=== PATIENT | female | born 1980 | race Caucasian/White ===

== ENCOUNTER 2017-05-11 00:36 | Emergency (ER) | payer OTHER ==
[2017-05-11 00:43] VITALS: BP 135/83
== END 2017-05-11 02:06 | disposition home or self-care (01) ==
LOC: ED 00:36
DX: L60.0 Ingrowing nail (principal)
CPT/HCPCS: J1885

== ENCOUNTER 2017-07-12 17:37 | Emergency (ER) | payer OTHER ==
[2017-07-12 17:54] VITALS: BP 151/93
== END 2017-07-12 19:22 | disposition home or self-care (01) ==
LOC: ED 17:37
DX: M77.31 Calcaneal spur, right foot (principal)
CPT/HCPCS: J1885

== ENCOUNTER 2017-11-20 07:46 | Emergency (ER) | payer OTHER ==
[~2017-11-20] VITALS: Ht 170.2 cm; Wt 128.8 kg
[2017-11-20 08:03] VITALS: BP 142/85; Ht 170.2 cm; Wt 128.8 kg
== END 2017-11-20 11:18 | disposition home or self-care (01) ==
LOC: ED 07:46
DX: B34.9 Viral infection, unspecified (principal)

== ENCOUNTER 2018-12-14 23:00 | Emergency (ER) | payer OTHER ==
[~2018-12-14] VITALS: Ht 170.2 cm; Wt 126.1 kg
[2018-12-14 23:21] VITALS: Ht 170.2 cm; Wt 126.1 kg
[2018-12-15 00:31] VITALS: BP 132/76
== END 2018-12-15 00:31 | disposition home or self-care (01) ==
LOC: ED 23:00
DX: H66.91 Otitis media, unspecified, right ear (principal); J30.2 Other seasonal allergic rhinitis; Z98.890 Other specified postprocedural states

== ENCOUNTER 2019-02-20 22:32 | Emergency (ER) | payer OTHER ==
[~2019-02-20] VITALS: Ht 170.2 cm; Wt 130.6 kg
[2019-02-20 22:44] VITALS: Ht 170.2 cm; Wt 130.6 kg
[2019-02-21 00:25] VITALS: BP 143/90
== END 2019-02-21 00:25 | disposition home or self-care (01) ==
LOC: ED 22:32
DX: J30.9 Allergic rhinitis, unspecified (principal); J98.01 Acute bronchospasm; Z98.890 Other specified postprocedural states
CPT/HCPCS: J7512; J7613

== ENCOUNTER 2019-10-01 03:22 | Emergency (ER) | payer OTHER ==
[~2019-10-01] VITALS: Ht 170.2 cm; Wt 127.1 kg
[2019-10-01 03:26] VITALS: Ht 170.2 cm; Wt 127.1 kg
[2019-10-01 06:02] LABS: BASOPHIL % 0.6 % (0-2); PLATELET COUNT 237 x10^3mcL (130-400); RED CELL DISTRIBUTION WIDTH 13.6 % (11.5-14.5)
[2019-10-01 06:04] LABS: CALCIUM 8.4 mg/dL (8.5-10.1); CARBON DIOXIDE 24.4 mmol/L (21-32); CHLORIDE SERUM 107 mmol/L (98-107); CREATININE SERUM 0.8 mg/dL (0.6-1.0); GFR1 > 60 mL/min; GLUCOSE SERUM 96 mg/dL (74-106); POTASSIUM SERUM 4.2 mmol/L (3.5-5.1); SODIUM SERUM 142 mmol/L (136-145)
[2019-10-01 06:08] LABS: ALBUMIN 3.7 g/dL (3.4-5.0); ALKALINE PHOSPHATASE 60 U/L (46-116); ALT/SGPT 79 U/L (14-59); AMYLASE 39 U/L (25-115); AST/SGOT 62 U/L (15-37); BILIRUBIN TOTAL 0.4 mg/dL (0.20-1.00); LIPASE 176 IU/L (73-393); TOTAL PROTEIN, SERUM 7.9 g/dL (6.4-8.2)
[2019-10-01 10:01] VITALS: BP 131/73
== END 2019-10-01 10:01 | disposition home or self-care (01) ==
LOC: ED 03:22
PROVIDERS: Emergency Medicine
DX: R07.89 Other chest pain (principal); E86.0 Dehydration; K21.9 Gastro-esophageal reflux disease without esophagitis
CPT/HCPCS: 36415; 87804

== ENCOUNTER 2020-01-13 08:32 | Emergency (ER) | payer OTHER ==
[~2020-01-13] VITALS: Ht 167.6 cm; Wt 127.0 kg
[2020-01-13 09:09] VITALS: Ht 167.6 cm; Wt 127.0 kg
[2020-01-13 11:03] VITALS: BP 134/86
== END 2020-01-13 11:03 | disposition home or self-care (01) ==
LOC: ED 08:32
DX: M25.561 Pain in right knee (principal)

== ENCOUNTER 2020-01-19 04:20 | Emergency (ER) | payer OTHER ==
[~2020-01-19] VITALS: Ht 170.2 cm; Wt 131.6 kg
[2020-01-19 04:46] VITALS: Ht 170.2 cm; Wt 131.6 kg
[2020-01-19 06:54] VITALS: BP 130/75
== END 2020-01-19 06:54 | disposition home or self-care (01) ==
LOC: ED 04:20
DX: M25.561 Pain in right knee (principal); Z98.890 Other specified postprocedural states
CPT/HCPCS: J1885

== ENCOUNTER 2020-06-25 22:47 | Emergency (ER) | payer OTHER, SELFPAY ==
[~2020-06-25] VITALS: Ht 170.2 cm; Wt 127.0 kg
[2020-06-25 22:48] VITALS: Ht 170.2 cm; Wt 127.0 kg
[2020-06-26 00:27] VITALS: BP 150/106
== END 2020-06-26 00:26 | disposition home or self-care (01) ==
LOC: ED 22:47
DX: U07.1 COVID-19 (principal); B34.9 Viral infection, unspecified; J45.909 Unspecified asthma, uncomplicated; Z98.890 Other specified postprocedural states
CPT/HCPCS: Q0092; U0003-CS

== ENCOUNTER 2020-10-08 12:58 | Inpatient (IN) | payer OTHER, SELFPAY ==
[~2020-10-08] VITALS: Ht 170.2 cm; Wt 113.4 kg
[2020-10-08 13:00] VITALS: Ht 170.2 cm; Wt 113.4 kg
[2020-10-08 15:41] LABS: UA SPECIFIC GRAVITY 1.025 (1.005-1.035); microscopic required? YES; urine erythrocyte NEGATIVE (NEGATIVE)
[2020-10-08 15:43] LABS: CARBON DIOXIDE 26.4 mmol/L (21-32); CHLORIDE SERUM 100 mmol/L (98-107); CREATININE SERUM 0.7 mg/dL (0.6-1.0); GFR1 > 60 mL/min; GLUCOSE SERUM 100 mg/dL (74-106); POTASSIUM SERUM 3.9 mmol/L (3.5-5.1); SODIUM SERUM 133 mmol/L (136-145)
[2020-10-08 15:48] LABS: ALBUMIN 2.9 g/dL (3.4-5.0); ALKALINE PHOSPHATASE 68 U/L (46-116); ALT/SGPT 110 U/L (14-59); AST/SGOT 121 U/L (15-37); BILIRUBIN TOTAL 3.7 mg/dL (0.20-1.00); CHOLESTEROL 134 mg/dL (<200); CHOLESTEROL/HDL RATIO 8.9; HDL CHOLESTEROL 15 mg/dL (40-60); LIPASE 54 IU/L (73-393); TOTAL PROTEIN, SERUM 6.7 g/dL (6.4-8.2); TRIGLYCERIDES 143 mg/dL (<150)
[2020-10-08 16:31] LABS: BASOPHIL % 0.4 % (0-2); PLATELET COUNT 173 x10^3mcL (130-400); RED CELL DISTRIBUTION WIDTH 13.6 % (11.5-14.5)
[2020-10-08 23:54] VITALS: BP 114/62
[2020-10-09 05:53] VITALS: BP 136/62
[2020-10-09 08:18] LABS: CHOLESTEROL/HDL RATIO 12.1
[2020-10-09 08:44] VITALS: BP 111/68
[2020-10-09 12:32] VITALS: BP 133/64
[2020-10-09 16:18] LABS: BASOPHIL % 0.6 % (0-2); PLATELET COUNT 197 x10^3mcL (130-400); RED CELL DISTRIBUTION WIDTH 13.4 % (11.5-14.5)
[2020-10-09 16:32] LABS: CARBON DIOXIDE 28.1 mmol/L (21-32); CHLORIDE SERUM 102 mmol/L (98-107); CREATININE SERUM 0.8 mg/dL (0.6-1.0); GFR1 > 60 mL/min; GLUCOSE SERUM 98 mg/dL (74-106); POTASSIUM SERUM 3.8 mmol/L (3.5-5.1); SODIUM SERUM 138 mmol/L (136-145)
[2020-10-09 16:34] VITALS: BP 121/54
[2020-10-09 16:38] LABS: ALKALINE PHOSPHATASE 107 U/L (46-116); ALT/SGPT 118 U/L (14-59); AST/SGOT 127 U/L (15-37); BILIRUBIN TOTAL 4.53 mg/dL (0.20-1.00); TOTAL PROTEIN, SERUM 6.8 g/dL (6.4-8.2)
[2020-10-09 16:42] LABS: ALBUMIN 2.8 g/dL (3.4-5.0)
[2020-10-09 20:40] VITALS: BP 120/68
[2020-10-10 04:54] VITALS: BP 122/70
[2020-10-10 06:37] LABS: BASOPHIL % 0.3 % (0-2); PLATELET COUNT 196 x10^3mcL (130-400); RED CELL DISTRIBUTION WIDTH 13.4 % (11.5-14.5)
[2020-10-10 07:01] LABS: ALKALINE PHOSPHATASE 133 U/L (46-116); ALT/SGPT 125 U/L (14-59); AST/SGOT 157 U/L (15-37); BILIRUBIN TOTAL 5.26 mg/dL (0.20-1.00); CALCIUM 8.2 mg/dL (8.5-10.1); CHLORIDE SERUM 101 mmol/L (98-107); CREATININE SERUM 0.7 mg/dL (0.6-1.0); GFR1 > 60 mL/min; GLUCOSE SERUM 102 mg/dL (74-106); POTASSIUM SERUM 3.8 mmol/L (3.5-5.1); SODIUM SERUM 136 mmol/L (136-145); TOTAL PROTEIN, SERUM 6.8 g/dL (6.4-8.2)
[2020-10-10 07:04] LABS: ALBUMIN 2.7 g/dL (3.4-5.0)
[2020-10-10 08:33] VITALS: BP 116/54
[2020-10-10 12:16] VITALS: BP 124/61
[2020-10-10 16:55] VITALS: BP 119/67
[2020-10-10 20:28] VITALS: BP 122/50
[2020-10-11 05:43] VITALS: BP 120/69
[2020-10-11 07:23] LABS: BASOPHIL % 0.6 % (0-2); PLATELET COUNT 210 x10^3mcL (130-400); RED CELL DISTRIBUTION WIDTH 13.6 % (11.5-14.5)
[2020-10-11 07:54] LABS: ALKALINE PHOSPHATASE 147 U/L (46-116); ALT/SGPT 133 U/L (14-59); AST/SGOT 163 U/L (15-37); BILIRUBIN TOTAL 5.71 mg/dL (0.20-1.00); CALCIUM 8.4 mg/dL (8.5-10.1); CARBON DIOXIDE 27.7 mmol/L (21-32); CHLORIDE SERUM 103 mmol/L (98-107); CREATININE SERUM 0.7 mg/dL (0.6-1.0); GFR1 > 60 mL/min; GLUCOSE SERUM 102 mg/dL (74-106); POTASSIUM SERUM 3.4 mmol/L (3.5-5.1); SODIUM SERUM 139 mmol/L (136-145); TOTAL PROTEIN, SERUM 6.8 g/dL (6.4-8.2)
[2020-10-11 07:55] LABS: ALBUMIN 2.6 g/dL (3.4-5.0)
[2020-10-11 08:12] VITALS: BP 123/71
[2020-10-11 12:12] VITALS: BP 128/54
[2020-10-11 16:28] VITALS: BP 127/76
[2020-10-11 17:14] LABS: ALKALINE PHOSPHATASE 152 U/L (46-116); ALT/SGPT 143 U/L (14-59); AST/SGOT 165 U/L (15-37); BILIRUBIN TOTAL 4.21 mg/dL (0.20-1.00); CALCIUM 8.1 mg/dL (8.5-10.1); CARBON DIOXIDE 24.2 mmol/L (21-32); CHLORIDE SERUM 102 mmol/L (98-107); CREATININE SERUM 0.7 mg/dL (0.6-1.0); GFR1 > 60 mL/min; GLUCOSE SERUM 122 mg/dL (74-106); POTASSIUM SERUM 4.1 mmol/L (3.5-5.1); SODIUM SERUM 136 mmol/L (136-145)
[2020-10-11 17:17] LABS: ALBUMIN 2.7 g/dL (3.4-5.0)
[2020-10-11 21:23] VITALS: BP 123/74
[2020-10-12 06:18] VITALS: BP 126/77
[2020-10-12 07:29] LABS: BASOPHIL % 0.3 % (0-2); PLATELET COUNT 275 x10^3mcL (130-400); RED CELL DISTRIBUTION WIDTH 13.7 % (11.5-14.5)
[2020-10-12 08:02] LABS: ALBUMIN 2.6 g/dL (3.4-5.0); ALKALINE PHOSPHATASE 140 U/L (46-116); ALT/SGPT 115 U/L (14-59); AST/SGOT 99 U/L (15-37); BILIRUBIN TOTAL 2.19 mg/dL (0.20-1.00); CALCIUM 8.6 mg/dL (8.5-10.1); CARBON DIOXIDE 26.7 mmol/L (21-32); CHLORIDE SERUM 102 mmol/L (98-107); CREATININE SERUM 0.7 mg/dL (0.6-1.0); GFR1 > 60 mL/min; GLUCOSE SERUM 115 mg/dL (74-106); POTASSIUM SERUM 4.3 mmol/L (3.5-5.1); SODIUM SERUM 136 mmol/L (136-145); TOTAL PROTEIN, SERUM 6.9 g/dL (6.4-8.2)
[2020-10-12 08:23] VITALS: BP 132/74
[2020-10-12] MEDS ORDERED: PER5 PO (11:25)
[2020-10-12] MEDS ORDERED: SEN PO (11:25)
[2020-10-12] MEDS ORDERED: COL100 PO (11:25)
[2020-10-12 12:22] VITALS: BP 115/61
[2020-10-12 13:38] VITALS: BP 115/61
== END 2020-10-12 15:07 | disposition home or self-care (01) | DRG 263 ==
LOC: ED 12:58 → DU 18:25 → MU 18:25 → DU 10-11 19:06
PROVIDERS: Specialist; Surgery; ADMIT Hospitalist; ATTEND Hospitalist
PROC: 0F798ZZ Dilation of Common Bile Duct, Via Natural or Artificial Opening Endoscopic (ICD-10-PCS; 2020-10-10)
PROC: BF131ZZ Fluoroscopy of Gallbladder and Bile Ducts using Low Osmolar Contrast (ICD-10-PCS; 2020-10-10)
PROC: 0F9440Z Drainage of Gallbladder with Drainage Device, Percutaneous Endoscopic Approach (ICD-10-PCS; 2020-10-11)
PROC: 0FT44ZZ Resection of Gallbladder, Percutaneous Endoscopic Approach (ICD-10-PCS; principal; 2020-10-11 11:00)
DX: K80.00 Calculus of gallbladder with acute cholecystitis without obstruction (principal); E66.9 Obesity, unspecified; Z20.828 Contact with and (suspected) exposure to other viral communicable diseases; J45.909 Unspecified asthma, uncomplicated; Z88.5 Allergy status to narcotic agent; Z68.39 Body mass index [BMI] 39.0-39.9, adult
CPT/HCPCS: 43262; 85378; 87804; C1769; G0378; G0480; J0690; J0696; J1200; J1610; J1885; J2250; J2270; J2405; J3010; J3480; J3490; J7030; J7120; Q0162; Q9967